=== PATIENT | male | born 1995 | race Two or more races ===

== ENCOUNTER → 2024-05-17 | Outpatient (CLI) | payer MEDICAID, SELFPAY ==
--- NOTE | 2024-05-17 16:14 | XR_ITS ---
Examination: Left elbow 3 views Technique: Elbow AP, oblique, lateral 3 views Exam date and time: May 17, 2024 1645 hours. Indications: Left elbow pain 3 weeks. FINDINGS: Adequate bone density. No fracture or dislocation. No arthritic change IMPRESSION: Negative for osseous abnormality
== END | disposition home or self-care (01) ==
PROVIDERS: Referring Provider Family Medicine; Visit Provider Family Medicine
DX: S53.402A Unspecified sprain of left elbow, initial encounter (principal); X58.XXXA Exposure to other specified factors, initial encounter
CPT/HCPCS: 73080

== ENCOUNTER → 2024-07-26 | Outpatient (CLI) | payer MEDICAID, SELFPAY ==
--- NOTE | 2024-07-26 10:00 | XR_ITS ---
Examination: MRI left elbow, without contrast Date and time of exam: July 26, 2024 1023 hours INDICATIONS: Work injury to the elbow April 2024 with joint locking clicking loss of strength weakness, diagnosis unspecified sprain left elbow initial encounter Technique: Multiple axial sagittal and coronal images of the left elbow have been obtained with the Siemens high-resolution 1.5 Jami MRI scanner. Images obtained include T2-weighted fat-suppressed sagittal sections, TR 3500, TE 46, T2 weighted coronal fat suppressed images, TR 3050, TE 84, T2-weighted transverse fat suppressed images, TR 3260, TE 63, proton density transverse images, TR 4720 TE 46, and T1 weighted coronal images, TR 560, TE 13. Findings: Adequate marrow signal No occult fracture or marrow edema or avascular necrosis Intact long head of the biceps inserting into the radial tuberosity Moderate hyperintensity of the common extensor tendon consistent with moderate strain Common flexor tendon and medial collateral ligaments are intact Triceps tendon is thickened with increased signal No ossified joint bodies IMPRESSION: Moderate strain common extensor tendon Moderate strain triceps tendon No occult fracture bone contusion or marrow edema
== END | disposition home or self-care (01) ==
LOC: SMRI 09:14
PROVIDERS: PCP Family Medicine; Referring Provider Family Medicine; Visit Provider Family Medicine
DX: S56.512A Strain of other extensor muscle, fascia and tendon at forearm level, left arm, initial encounter (principal); S46.312A Strain of muscle, fascia and tendon of triceps, left arm, initial encounter; X58.XXXA Exposure to other specified factors, initial encounter
CPT/HCPCS: 73221